=== PATIENT | male | born 1955 | race Caucasian/White ===

== ENCOUNTER → 2016-08-09 | Outpatient (CLI) | payer OTHER ==
[~2016-08-09] MED LIST: REGADENOSON 0.4 MG/5 ML SYRINGE IV ONE
--- NOTE | 2016-08-09 13:30 | NM ---
EXAMINATION TYPE: NM stress lexiscan cardiolite DATE OF EXAM: 08/09/2016 1:19 PM COMPARISON: NONE HISTORY: Hypertension and pain TECHNIQUE: After the intravenous administration of 9.5 mCi Tc 99m Sestamibi - Cardiolite resting SPE CT images acquired 45 minutes post injection. The patient received 0.4mg Lexiscan, 24.0 mCi Tc 99m Sestamibi - Stress images obtained [address] injection FINDINGS: Review of stress and rest SPECT images demonstrates fixed defect involving the inferior wall the myoc ardium. Small fixed defect involving the apex myocardium with corresponding wall motion defect.. Gat ed analysis shows normal wall motion with an estimated left ventricular ejection fraction of 52 %. IMPRESSION: Predominantly fixed defect involving the inferior and apical portions of the myocardium w ith a small area of segmental reversible perfusion defect and reversible ischemia involving the infer ior neural lateral myocardium. A Yellow message has been communicated to Bakari Evans DO via the [employer] system on 08/09/2016 1:27 PM, Message ID [id number].
--- NOTE | 2016-08-10 11:09 | ECHOF ---
Referral Reason: MEASUREMENTS -------- HEIGHT: 165.1 cm WEIGHT: 117.9 kg BP: IVSd: 1.3 cm (0.6 - 1.1) LVIDd: 5.2 cm (3.9 - 5.3) LVPWd: 1.2 cm (0.6 - 1.1) IVSs: 1.3 cm LVIDs: 4.3 cm LVPWs: 1.4 cm LA Diam: 3.8 cm (2.7 - 3.8) LAESV Index (A-L): 19.80 ml/m Ao Diam: 4.0 cm (2.0 - 3.7) AV Cusp: 1.7 cm (1.5 - 2.6) LA Diam: 3.8 cm (2.7 - 3.8) MV EXCURSION: 19.783 mm (> 18.000) MV EF SLOPE: 62 mm/s (70 - 150) EPSS: 0.6 cm MV E Ernesto: 0.76 m/s MV DecT: 291 ms MV A Ernesto: 1.06 m/s MV E/A Ratio: 0.72 RAP: 5.00 mmHg RVSP: 19.65 mmHg FINDINGS -------- Sinus rhythm. This was a technically adequate study. There is mild concentric left ventricular hypertrophy. Overall left ventricular systolic function is low-normal with, an EF between 50 - 55 %. The right ventricle is normal in size. Normal LA size by volume 22+/-6 ml/m2. The right atrial size is normal. There is mild aortic valve sclerosis. There is no evidence of aortic regurgitation. Mild mitral annular calcification present. Mild mitral regurgitation is present. Mild tricuspid regurgitation present. There is no evidence of pulmonary hypertension. The right ventricular systolic pressure, as measured by Doppler, is 19.65mmHg. There is no pulmonic regurgitation present. The aortic root size is normal. There is no pericardial effusion. CONCLUSIONS -------- 1. Overall left ventricular systolic function is low-normal with, an EF between 50 - 55 %. 2. There is mild aortic valve sclerosis. 3. Mild mitral annular calcification present. 4. Mild mitral regurgitation is present. 5. Mild tricuspid regurgitation present. 6. There is no evidence of pulmonary hypertension. 7. The right ventricular systolic pressure, as measured by Doppler, is 19.65mmHg. CREW FOREMAN: Audrey Seo RDCS
--- NOTE | 2016-08-10 11:48 | EST ---
DATE OF SERVICE: 08/09/2016 AGE: 61Y SEX: M HT: 5'5" WT: lbs. Protocol Anjum: Other: Lexiscan Cardiolite Stage: Dur. of Exercise: *Heart Rate Blood Pressure *Rest: 78 Rest: 143/89 * *Max. Achieved: 94 Maximum BP: 153/79 85% PMHR: 134 100% PMHR: 158 *METS: INDICATIONS: Increase blood pressure. MEDICATIONS: Norvasc, losartan, atenolol, Zyrtec. Patient was given Lexiscan injection over a period of 15 seconds. Resting EKG shows normal sinus rhythm with normal [place] interval and QRS duration and normal ST-T waves. No ST segment depression suggestive of ischemia is noted during the Lexiscan injection. Results of the nuclear study will follow.
== END | disposition home or self-care (01) ==
LOC: RADNMMAIN 08:53
PROVIDERS: ATTEND Family Medicine
DX: G47.33 Obstructive sleep apnea (adult) (pediatric) (principal); R60.9 Edema, unspecified; I10 Essential (primary) hypertension
CPT/HCPCS: 93017; 93306; 78452; A9500; J2785

== ENCOUNTER → 2016-08-28 | Outpatient (CLI) | payer OTHER ==
[2016-08-28 08:55] LABS: CH 30.7; HCT 45.7 % (39.0-53.0); HDW 2.32; HGB 14.9 gm/dL (13.0-17.5); MCH 30.4 pg (25.0-35.0); MCHC 32.5 g/dL (31.0-37.0); MCV 93.4 fL (80.0-100.0); Mean Platelet Volume 6.7; RDW 14.2 % (11.5-15.5)
[2016-08-28 09:12] LABS: Anion Gap 8 mmol/L; Blood Urea Nitrogen 25 mg/dL (9-20); Carbon Dioxide 27 mmol/L (22-30); Chloride 106 mmol/L (98-107); Non-African American GFR(MDRD) >60 (>60 ml/min/1.73 sqM); Potassium 4.3 mmol/L (3.5-5.1); Sodium 141 mmol/L (137-145)
== END | disposition home or self-care (01) ==
LOC: LABPAT 08:15
PROVIDERS: ATTEND Internal Medicine Interventional Cardiology
DX: Z01.812 Encounter for preprocedural laboratory examination (principal); I25.10 Atherosclerotic heart disease of native coronary artery without angina pectoris
CPT/HCPCS: 80051; 82565; 84520; 85027

== ENCOUNTER 2016-09-01 07:48 | Day surgery (SDC) | payer OTHER ==
[2016-08-30 11:19] VITALS: BMI 44.1
[~2016-09-01 07:48] MED LIST changes: +ALPRAZolam 0.25 MG TAB PO PRN; +ALPRAZolam 0.5 MG TAB PO PRN; +ASPIRIN 325 MG TAB PO STA; +ATORVASTATIN 80 MG TAB PO STA; +NITROGLYCERIN SL TABS 0.4 MG TAB SUBLINGUAL PRN; -REGADENOSON 0.4 MG/5 ML SYRINGE IV ONE; +SODIUM CHLORIDE 0.9% 1,000 ML in EMPTY BAG 1 BAG IV ONE
[2016-09-01 08:12] VITALS: RESP 16; TEMP 98.1
[2016-09-01] MEDS ORDERED: LIDOCAINE 2% INJ 20 MG/ML (20 ML MDV) ONE (08:54)
[2016-09-01] MEDS ORDERED: VERAPAMIL 2.5 MG/ML 2 ML AMP ONE (08:54)
[2016-09-01] MEDS ORDERED: HEPARIN SODIUM 1,000 UNIT/ML VIAL ONE (08:54)
[2016-09-01] MEDS ORDERED: MIDAZOLAM 2 MG/2 ML VIAL ONE ×2 (08:54→10:06)
[2016-09-01] MEDS ORDERED: MIDAZOLAM 2 MG/2 ML VIAL IV ONE ×2 (09:35→10:09)
[2016-09-01] MEDS ORDERED: LIDOCAINE 2% INJ 20 MG/ML SQ ONE (09:40)
[2016-09-01] MEDS ORDERED: VERAPAMIL SYRINGE (5 MG/10 ML) INTRAARTER ONE ×2 (09:41→10:11)
[2016-09-01] MEDS ORDERED: fentaNYL (PF) 50 MCG/ML 2 ML AMP ONE (09:42)
[2016-09-01] MEDS ORDERED: IOHEXOL 350 MG/ML 125ML BOTTLE INJ ONE (10:12)
[2016-09-01] MEDS ORDERED: RX INFO: IV CONTRAST WAS GIVEN 1 EACH MISC MISCELLANE PRN (10:17)
[2016-09-01] MEDS ORDERED: SODIUM CHLORIDE 0.9% 1,000 ML IV SCH (10:30)
--- NOTE | 2016-09-01 11:07 | CC ---
DATE OF SERVICE: 09/01/2016 PERFORMING PHYSICIAN: Jigar Rogers MD, Load Mixer. PROCEDURE PERFORMED: Selective right and left coronary angiogram. 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 The decision was made toward heart catheterization to rule out any severe underlying CAD. APPROACH: Right radial artery. COMPLICATIONS: None. LEVEL OF SEDATION: Moderate with a sedation length of 38 minutes. PROCEDURE DESCRIPTION: After obtaining an informed consent, the patient was brought to the Cardiac Chief Juvenile Probation Officer. The right radial artery was cannulated using micropuncture technique. The micropuncture wire passed easily, then I placed 6 Lao sheath in the right radial artery. Subsequently, I did selective right and left coronary angiogram using JR4 and JL3.5 catheters. The procedure was completed without any complication. SELECTIVE CORONARY ANGIOGRAM: 1. The right coronary artery is a large-caliber vessel and it is a dominant vessel, it is angiographically normal. If bifurcates distally into the PDA and PLV branches; both are angiographically normal. 2. The left main is a large-caliber vessel. The ostial left main appeared to be diseased in the range of 20% only. It bifurcates into the left circumflex and left anterior descending artery. 3. The left circumflex is a large-caliber vessel. It is a nondominant vessel. The left circumflex is angiographically normal. It gives rise into 2 obtuse marginal branches and both are angiographically normal. 4. The left anterior descending artery. The proximal LAD appeared to be angiographically normal. The mid LAD is normal and the distal LAD is normal as well. The LAD gives rise into the 3 diag branches; the three of them are angiographically normal. 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 POSTPROCEDURE MANAGEMENT: 1. Medical treatment. 2. Follow up with the patient.
[2016-09-01 13:28] VITALS: PULSE 51
[2016-09-01 14:52] VITALS: BP 121/62
== END 2016-09-01 15:12 | disposition home or self-care (01) ==
LOC: CATHCVL 07:48
PROVIDERS: ATTEND Internal Medicine Interventional Cardiology
DX: I25.110 Atherosclerotic heart disease of native coronary artery with unstable angina pectoris (principal); I10 Essential (primary) hypertension; Z82.49 Family history of ischemic heart disease and other diseases of the circulatory system; Z79.1 Long term (current) use of non-steroidal anti-inflammatories (NSAID); Z79.899 Other long term (current) drug therapy
CPT/HCPCS: 99152; 99153 ×2; 93454; C1769 ×2; J2001; J2250; J1644; Q9967

== ENCOUNTER → 2020-03-05 | Outpatient (CLI) | payer MEDICARE ==
--- NOTE | 2020-03-05 14:42 | XR ---
Bilateral knees HISTORY: Bilateral knee pain 3 views of each knee are submitted. There is comparison to prior exam 03/10/2011 right knee plain film There is marked arthropathy present bilaterally, tricompartmental marginal spurring, joint space loss especially in the patellofemoral joints, medial compartments, bone mineralization is maintained. Mil d varus deformity present bilaterally. IMPRESSION: Osteoarthritis.
== END | disposition home or self-care (01) ==
LOC: RADXRYALE 11:01
PROVIDERS: ATTEND Family Medicine
DX: M17.0 Bilateral primary osteoarthritis of knee (principal); M25.562 Pain in left knee

== ENCOUNTER → 2020-09-24 | Outpatient (CLI) | payer MEDICARE ==
[2020-09-24 10:11] LABS: HCT 46.7 % (39.0-53.0); HGB 15.4 gm/dL (13.0-17.5); MCH 30.2 pg (25.0-35.0); MCHC 32.9 g/dL (31.0-37.0); MCV 91.9 fL (80.0-100.0); Mean Platelet Volume 6.9; Platelet Count 352 k/uL (150-450); RBC 5.09 m/uL (4.30-5.90); RDW 14.5 % (11.5-15.5); WBC 9.6 k/uL (3.8-10.6)
[2020-09-24 10:13] LABS: Appearance,Urine Clear (Clear); Bilirubin,Urine Negative (Negative); Blood,Urine Trace (Negative); Color,Urine Yellow; Glucose,Urine (UA) Negative (Negative); Ketones,Urine Negative (Negative); Leukocyte Esterase,Urine Trace (Negative); Mucus,Urine Rare /hpf; Nitrite,Urine Negative (Negative); Protein,Urine Negative (Negative); RBC,Urine 2 /hpf (0-5); Specific Gravity,Urine 1.018 (1.001-1.035); Urobilinogen,Urine <2.0 mg/dL (<2.0); WBC,Urine 1 /hpf (0-5)
[2020-09-24 10:16] LABS: ALT 40 U/L (4-49); AST 36 U/L (17-59); African American GFR (CKD) >90 (>60 ml/min/1.73 sqM); Albumin 4.4 g/dL (3.5-5.0); Alkaline Phosphatase 48 U/L (38-126); Anion Gap 8 mmol/L; Blood Urea Nitrogen 22 mg/dL (9-20); Calcium 9.4 mg/dL (8.4-10.2); Carbon Dioxide 28 mmol/L (22-30); Chloride 102 mmol/L (98-107); Glucose 108 mg/dL (74-99); Non-African American GFR(CKD) 88 (>60 ml/min/1.73 sqM); Potassium 3.9 mmol/L (3.5-5.1); Sodium 138 mmol/L (137-145); Total Bilirubin 0.9 mg/dL (0.2-1.3)
[2020-09-24 10:29] LABS: Partial Thromboplastin Time 24.4 sec (22.0-30.0); Prothrombin Time 10.7 sec (9.0-12.0)
== END | disposition home or self-care (01) ==
LOC: LABPAT 09:24
PROVIDERS: ATTEND Orthopaedic Surgery
DX: Z01.818 Encounter for other preprocedural examination (principal); M16.12 Unilateral primary osteoarthritis, left hip; R94.31 Abnormal electrocardiogram [ECG] [EKG]
CPT/HCPCS: 36415; 80053; 81001; 85027; 85610; 85730; 87070; 93005

== ENCOUNTER 2020-10-05 05:43 | Day surgery (SDC) | payer MEDICARE ==
[2020-09-30 16:13] VITALS: BMI 45.3
[~2020-10-05 05:43] MED LIST changes: +ACETAMINOPHEN TAB 500 MG TAB PO PRN; -ALPRAZolam 0.25 MG TAB PO PRN; -ALPRAZolam 0.5 MG TAB PO PRN; -ASPIRIN 325 MG TAB PO STA; -ATORVASTATIN 80 MG TAB PO STA; +DEXAMETHASONE SOD PHOSPHATE 4 MG/ML 1 ML VIAL IV ONE; +GABAPENTIN 300 MG CAP PO PRN; +LACTATED RINGERS 1,000 ML IV SCH; +LIDOCAINE 1% (10MG/ML) FOR IV START INTRADERMA PRN; +MELOXICAM 7.5 MG TAB PO PRN; +MIDAZOLAM 2 MG/2 ML VIAL IV PRN; -NITROGLYCERIN SL TABS 0.4 MG TAB SUBLINGUAL PRN; +ONDANSETRON 4 MG/2 ML VIAL IVP ONE; -SODIUM CHLORIDE 0.9% 1,000 ML in EMPTY BAG 1 BAG IV ONE; +TRANEXAMIC ACID 1,000 MG in SODIUM CHLORIDE 0.9% 100 ML IVPB PRN; +ceFAZolin 3 GM in SODIUM CHLORIDE 0.9% 100 ML IVPB PRN
[2020-10-05 06:39] VITALS: RESP 16
[2020-10-05] MEDS ORDERED: PROPOFOL 10 MG/ML 20 ML VIAL IV ONE (06:54)
[2020-10-05] MEDS ORDERED: HYDROmorphone (PF) 1 MG/ML ONE (06:54)
[2020-10-05] MEDS ORDERED: HEPARIN SODIUM,PORCINE 10,000 UNIT/ML 1 ML VIAL ONE (06:54)
[2020-10-05] MEDS ORDERED: LIDOCAINE 1% INJ 10MG/ML (20 ML MDV) ONE (06:54)
[2020-10-05] MEDS ORDERED: SODIUM CHLORIDE 0.9% 100 ML BAG ONE (06:54)
[2020-10-05] MEDS ORDERED: SODIUM CHLORIDE 0.9% IRRIG 1,000 ML BTL IRRIGATION ONE (06:54)
[2020-10-05] MEDS ORDERED: SUCCINYLCHOLINE CHLORIDE VIAL 200 MG/10 ML VIAL IV ONE (06:54)
[2020-10-05] MEDS ORDERED: TRANEXAMIC ACID 1,000 MG/10 ML VIAL ONE (06:54)
[2020-10-05] MEDS ORDERED: fentaNYL (PF) 50 MCG/ML 2 ML AMP ONE (06:54)
[2020-10-05] MEDS ORDERED: MIDAZOLAM 2 MG/2 ML VIAL ONE (06:54)
[2020-10-05] MEDS ORDERED: ePHEDrine SULFATE/0.9% NACL/PF 50 MG/5 ML SYRINGE IV ONE (06:54)
[2020-10-05] MEDS ORDERED: ceFAZolin 3,000 MG in SODIUM CHLORIDE 0.9% IRRIGATIO 3,000 ML IRRIGATION ONE (06:59)
[2020-10-05] MEDS ORDERED: NALOXONE 0.4 MG/ML 1 ML VIAL IV PRN (07:03)
[2020-10-05] MEDS ORDERED: HYDROmorphone 0.2 MG/1 ML SYRINGE IVP PRN (07:03)
[2020-10-05] MEDS ORDERED: HYDROmorphone 0.5 MG/0.5 ML SYRINGE IVP PRN ×2 (07:03)
[2020-10-05] MEDS ORDERED: ONDANSETRON 4 MG/2 ML VIAL IVP PRN (07:03)
[2020-10-05] MEDS ORDERED: HYDROcodone/APAP 7.5-325MG 1 EACH TAB PO PRN ×2 (07:05)
[2020-10-05] MEDS ORDERED: SODIUM CHLORIDE 0.9% 1,000 ML IV SCH (07:15)
[2020-10-05] MEDS: ROPIVACAINE/EPI/CLONIDINE/KET 50 ML SYRINGE MISCELLANE PRN ×2 (07:18→08:15)
--- NOTE | 2020-10-05 08:38 | P.OP ---
Date of Procedure: 10/05/20 Preoperative Diagnosis: Severe osteoarthritis left hip Postoperative Diagnosis: Severe osteoarthritis left hip Procedure(s) Performed: Left total hip arthroplasty direct anterior approach Implants: [employer] Polarstem standard size 2 [employer] R3, 3 hole hemispherical acetabular shell, 52 mm [employer] Reflection 6.5 mm cancellus screw, 20 mm 2 [employer] R3, XLPE 20 acetabular liner [employer] Oxinium femoral head 36 m, +4 All components were press-fit. The articulation is Oxinium on polyethylene. Anesthesia: GETA Surgeon: Bakari Carbajal Project Management Specialist #1: Soo Patterson Estimated Blood Loss (ml): 450 (199 mL returned with Cell Saver) Pathology: other (Femoral head) Condition: stable Disposition: PACU Indications for Procedure: After failure of conservative treatment we discussed the surgical and nonsurgical treatment options at length. Patient wishes to proceed with a total hip arthroplasty with a direct anterior approach. Complications specific to this procedure were discussed at length, including but not limited to infection, leg length discrepancy, dislocation, nerve injury, and fracture. Covid-19 was also discussed at length with the patient, and they are aware of the current policies and procedures. The patient was given the option of delaying surgery, but they elect to proceed knowing these risks. Patient is aware of all these complications and informed consent was obtained Operative Findings: The operative findings are consistent with severe osteoarthritis of the left hip Description of Procedure: Patient was seen and evaluated in the preoperative area and the consent was reviewed. The operative site was marked with a skin marker. The patient was then brought to the operating room and given preoperative antibiotics intravenously. 1 g of Tranexamic acid was also given intravenously. A general anesthetic was administered by the anesthesia department. The patient was then placed on the Keavy table with the bony prominences well-padded. The hip area was then prepped with a ChloraPrep solution and draped in the usual sterile fashion. A universal timeout was then performed, which confirmed the patient's name, surgical site, ALLERGIES, and procedure being performed on the consent. Next the incision site was located at 1 cm distal to the anterior superior iliac spine along the flexion crease of the hip. The skin and subcutaneous tissues were sharply incised. Incision was carefully dissected down to the fascia overlying the tensor fascia megan muscle. This fascia was then incised in line with the incision. Care was taken to stay laterally in order to avoid injuring the lateral femoral cutaneous nerve. Next, using blunt finger dissection, the tensor fascia megan muscle was dissected off its investing fascia. The muscle was then carefully retracted laterally with a cobra retractor over the lateral neck of the femur. Next, the circumflex vessels were identified and cauterized using the AquaMantis device. The anterior hip capsule was then exposed. The capsule was then opened and an inverted T fashion. Cobra retractors were then placed intracapsularly. The retractors were maintained intracapsular throughout the procedure. The proximal femur was then visualized. A small amount of traction was placed on the leg. The femoral neck was then osteotomized appropriate level above the lesser trochanter. A small wedge of bone was then removed from the remaining femoral head. Next, using a corkscrew the femoral head was removed from the acetabulum. On gross visual inspection, the femoral head had complete loss of articular cartilage and multiple periarticular osteophytes. The femoral head was then measured. Attention was then turned to the acetabulum. The acetabulum was exposed and any remaining labrum was excised. Sequential reaming of the acetabulum was performed using fluoroscopic guidance until there was a good bed of bleeding cancellus bone. When the appropriate size was reached, a trial was then placed. The position and fit of the trial was checked with fluoroscopy. The trial was then removed. Then, using fluoroscopic guidance, the final implant was impacted at 20 of anteversion and 40 of abduction, and fully seated in the acetabulum. 2 screws were then placed in the acetabulum. Again fluoroscopy was used to check position of the screws. Next, the liner was then impacted, with a 20 elevated liner located in the anterior superior quadrant. Component locking was confirmed. Attention was then directed to the femur. With the aid of the Keavy table, the femur was externally rotated to approximately 130, extended, and adducted under the opposite leg. A side hook was then placed under the proximal femur, and the side hook elevator was used to elevate the proximal femur while releasing the capsule. Retractors were then placed. A capsular release was performed, as well as a release of the conjoined tendon, which afforded excellent visualization of the proximal femur. Next, a box osteotome was used to lateralize the proximal femur. A cigar tobacco rehandler was then used to locate the femoral canal. Sequential broaching was then performed with appropriate size which afforded excellent fixation in the proximal femur. A trial was then placed with appropriate head and neck, and the hip was gently reduced with the aid of the Keavy table. Fluoroscopy was then used to check position of the components, as well as to ensure equal leg lengths. The hip was then gently dislocated and the trials were then removed. Final implants were then impacted and the hip was again reduced. Final fluoroscopic x-rays confirmed that the components were in anatomic position, as well as equal leg lengths. The hip was also taken through range of motion, and found to be stable. The hip was then copiously irrigated with antibiotic solution with pulsatile lavage. The hip was then irrigated with Irrisept solution. The soft tissues we re then injected with a ropivacaine solution, which consisted of 246.25 mg of ropivacaine, 0.5 mg of epinephrine, 30 mg of Toradol, 80 g of clonidine, and 48.45 mL of sterile water, for a total of 100 mL of fluid injected. A second dose of 1 g of Tranexamic acid was also given intravenously. Any blood collected by Cell Saver was then returned to the patient at this time. The fascia was then closed with 2-0 strata fix suture. The subcutaneous tissue was closed with 3-0 Vicryl. The subcuticular tissue was closed with 3-0 strata fix suture. The skin was then closed with Exofin skin glue. After the glue and dried, and Optifoam silver impregnated dressing was applied. The patient was then transferred to the recovery room in stable condition. The radiology assistant MAYRA Foote was required due to the complexity of surgery, and the need for skilled surgical scrub tech for positioning, draping, exposure, retraction, and closure of the wound.
[2020-10-05 08:55] VITALS: TEMP 96.8
[2020-10-05] MEDS: HYDROmorphone 0.5 MG/0.5 ML SYRINGE IVP PRN ×3 (09:05→09:34)
[2020-10-05] MEDS ORDERED: LACTATED RINGERS 1,000 ML IV ONE (09:17)
--- NOTE | 2020-10-05 09:31 | XR ---
EXAMINATION TYPE: XR Hip Limited LT DATE OF EXAM: 10/05/2020 COMPARISON: NONE HISTORY: Postop TECHNIQUE: One view submitted. FINDINGS: There is postsurgical change in near anatomic alignment. There is soft tissue edema and emphysema. IMPRESSION: 1. Postoperative change. Appears in near-anatomic alignment.
--- NOTE | 2020-10-05 09:34 | FL ---
EXAMINATION TYPE: FL guidance operating room DATE OF EXAM: 10/05/2020 HISTORY: Fluoroscopy time 24 seconds of fluoroscopy provided. IMPRESSION: 1. Fluoroscopy time.
[2020-10-05 12:04] VITALS: PULSE 68
[2020-10-05 12:29] VITALS: BP 121/62
[2020-10-05] MEDS ORDERED: ceFAZolin 3 GM in SODIUM CHLORIDE 0.9% 100 ML IVPB SCH (16:00)
== END 2020-10-05 14:09 | disposition home health service (06) ==
LOC: OR 05:43
PROVIDERS: ATTEND Orthopaedic Surgery
DX: M16.12 Unilateral primary osteoarthritis, left hip (principal); E78.2 Mixed hyperlipidemia; I10 Essential (primary) hypertension; F41.9 Anxiety disorder, unspecified; E55.9 Vitamin D deficiency, unspecified; J32.4 Chronic pansinusitis; E66.01 Morbid (severe) obesity due to excess calories; Z79.899 Other long term (current) drug therapy
CPT/HCPCS: 97110; 97161; 86891; 86900; 86901; 86850; 88300; 73501; 27130; C1776; J2250; J0330; J1644; J1100; J0690 ×2; J2405; J2001; J3010; J1170 ×2; J2704

== ENCOUNTER → 2021-11-21 | Outpatient (CLI) | payer MEDICARE ==
--- NOTE | 2021-11-21 10:45 | XR ---
EXAMINATION TYPE: XR chest 2V DATE OF EXAM: 11/21/2021 COMPARISON: NONE HISTORY: [id number] TECHNIQUE: Frontal and lateral views of the chest are obtained. FINDINGS: Patient is rotated. There is no focal air space opacity, pleural effusion, or pneumothorax seen. The cardiac silhouette size is within normal limits. The osseous structures are intact, arth ropathy present at the chromic clavicular joints. Questionable prominence of the pulmonary artery. Th ere is thoracic spondylosis. IMPRESSION: No acute cardiopulmonary process. Question prominence of pulmonary artery, possibly tech nical, can be seen in pulmonary artery hypertension.
[2021-11-21 14:34] LABS: Appearance,Urine Clear (Clear); Bilirubin,Urine Negative (Negative); Blood,Urine Negative (Negative); Color,Urine Yellow (Yellow); Ketones,Urine Negative (Negative); Nitrite,Urine Negative (Negative); PH, Urine 5.5 (5.0-8.0); Specific Gravity,Urine 1.019 (1.001-1.030); Urobilinogen,Urine 0.2 (0.2,1.0)
[2021-11-21 15:38] LABS: Basophils # (A) 0.07 X 10*3/uL (0.00-0.10); Basophils % (A) 0.7 %; Eosinophils # (A) 0.54 X 10*3/uL (0.04-0.35); Eosinophils % (A) 5.7 %; HCT 43.9 % (39.6-50.0); HGB 14.4 g/dL (13.0-17.0); Immature Grans, Automated 0.5 %; Lymphocytes # (A) 1.63 X 10*3/uL (0.90-5.00); Lymphocytes % (A) 17.3 %; MCH 31.1 pg (27.0-32.0); MCHC 32.8 g/dL (32.0-37.0); MCV 94.8 fL (80.0-97.0); Mean Platelet Volume 9.2 fL (9.5-12.2); Monocytes % (A) 6.4 %; NRBC Per 100 WBC 0 /100 WBCS (0.0-0.0); Neutrophils # (A) 6.52 X 10*3/uL (1.80-7.70); Neutrophils % (A) 69.4 %; Platelet Count 353 X 10*3/uL (140-440); RBC 4.63 X 10*6/uL (4.40-5.60); RDW 14.1 % (11.5-14.5); WBC 9.41 X 10*3/uL (4.50-10.00)
[2021-11-21 15:48] LABS: African American GFR (CKD) 107.1 (60.0-200.0); Anion Gap 9.9 mmol/L (10.00-18.00); BUN/Creat Ratio 49.63 Ratio (12.00-20.00); Blood Urea Nitrogen 39.7 mg/dL (9.0-27.0); Calcium 9.5 mg/dL (8.7-10.3); Carbon Dioxide 23.1 mmol/L (20.0-27.5); Non-African American GFR(CKD) 92.4 (60.0-200.0)
== END | disposition home or self-care (01) ==
LOC: LABPAT 09:12
PROVIDERS: ATTEND Urology
DX: Z01.812 Encounter for preprocedural laboratory examination (principal); C61 Malignant neoplasm of prostate
CPT/HCPCS: 36415; 71046; 80048; 81003; 85025; 87086

== ENCOUNTER 2021-12-01 05:41 | Day surgery (SDC) | payer MEDICARE ==
[2021-11-29 09:49] VITALS: BMI 33.9
--- NOTE | 2021-11-29 13:49 | P.HPIHPCON ---
History of Present Illness H&P Date: 11/29/21 Mr. Doss is a 66-year-old male with history of gleson 7 (3+4) prostate cancer. We discussed with him the options including surgery and radiation therapy. We discussed the risk and benefits with him of each approach. I discussed with surgery the risk of urinary incontinence or erectile dysfunction, stricture, cancer recurrence.I also discussed with him risk of injury to nearby organs including bowels and rectum and blood vessels. I also discussed the risk from anesthesia with him. Which included blood clots, heart attack, stroke and even . He understood all the risk and agreed to proceed with a robotic- assisted radical prostatectomy and pelvic lymph node dissection Consent for Procedure: I have explained the operation/procedure to the patient, including the risks, benefits, side effects, alternative therapies (including not receiving the proposed treatment or service), the likelihood of the patient achieving his/her goals, and potential recuperation problems for the procedure/sedation/analgesia, as well as any blood products, if indicated. I also explained to the patient the risks, benefits and side effects of the alternatives, as well as the risks related to not receiving the proposed procedure, care, treatment, or services. Past Medical History Past Medical History: Cancer, Hypertension, Osteoarthritis (OA) Additional Past Medical History / Comment(s): PROSTATE CANCER. SEASONAL ALLERGIES History of Any Multi-Drug Resistant Organisms: None Reported Past Surgical History: Hernia Repair, Joint Replacement Additional Past Surgical History / Comment(s): LT MARLENE-2020. RT ANKLE REPLACEMENT. COLONOSCOPY Past Anesthesia/Blood Transfusion Reactions: No Reported Reaction Smoking Status: Never smoker - Past Family History Mother Family Medical History: No Reported History Medications and Allergies Home Medications Medication Instructions Recorded Confirmed Type Cetirizine HCl [Zyrtec] 10 mg PO HS 08/30/16 11/29/21 History Cholecalciferol [Vitamin D3 (25 5,000 unit PO MOWEFRSA 08/30/16 11/29/21 History Mcg = 1000 Iu)] Ibuprofen [Motrin] 800 mg PO BID PRN 08/30/16 11/29/21 History Losartan [Cozaar] 100 mg PO HS 08/30/16 11/29/21 History atenoloL 25 mg PO HS 08/30/16 11/29/21 History hydroCHLOROthiazide 50 mg PO DAILY 08/30/16 11/29/21 History Acetaminophen [Tylenol Extra 1,000 mg PO BID PRN 11/29/21 11/29/21 History Strength] Docusate [Colace] 300 mg PO HS 11/29/21 11/29/21 History Allergies Allergy/AdvReac Type Severity Reaction Status Date / Time cueva Allergy CAUSES Verified 11/29/21 10:00 MOUTH TO SWELL orange Allergy CAUSES Verified 11/29/21 10:00 MOUTH TO SWELL peach Allergy CAUSES Verified 11/29/21 10:00 MOUTH TO SWELL plum Allergy CAUSES Verified 11/29/21 10:00 MOUTH TO SWELL watermelon Allergy CAUSES Verified 11/29/21 10:00 MOUTH TO SWELL Surgical - Exam - General no distress, no pain - Eyes normal ocular movement - Respiratory normal expansion, normal respiratory effort - Abdomen Abdomen: soft, non tender - Psychiatric oriented to time, oriented to person, oriented to place Assessment and Plan Assessment: -OR for robotic prostatecomy and PLND
[~2021-12-01 05:41] MED LIST changes: -ACETAMINOPHEN TAB 500 MG TAB PO PRN; -DEXAMETHASONE SOD PHOSPHATE 4 MG/ML 1 ML VIAL IV ONE; -GABAPENTIN 300 MG CAP PO PRN; +HEPARIN SODIUM,PORCINE/PF 5,000 UNIT/0.5 ML SYRINGE SQ PRN; -LACTATED RINGERS 1,000 ML IV SCH; -LIDOCAINE 1% (10MG/ML) FOR IV START INTRADERMA PRN; -MELOXICAM 7.5 MG TAB PO PRN; -MIDAZOLAM 2 MG/2 ML VIAL IV PRN; -ONDANSETRON 4 MG/2 ML VIAL IVP ONE; -TRANEXAMIC ACID 1,000 MG in SODIUM CHLORIDE 0.9% 100 ML IVPB PRN; -ceFAZolin 3 GM in SODIUM CHLORIDE 0.9% 100 ML IVPB PRN
[2021-12-01] MEDS ORDERED: ONDANSETRON 4 MG/2 ML VIAL IVP ONE (06:04)
[2021-12-01] MEDS ORDERED: DEXAMETHASONE SOD PHOSPHATE 4 MG/ML 1 ML VIAL IV ONE (06:04)
[2021-12-01] MEDS: LACTATED RINGERS 1,000 ML IV SCH (06:30)
[2021-12-01] MEDS ORDERED: MIDAZOLAM 2 MG/2 ML VIAL IV ONE (06:59)
[2021-12-01] MEDS ORDERED: HEPARIN SODIUM,PORCINE/PF 5,000 UNIT/0.5 ML SYRINGE SQ ONE (07:15)
[2021-12-01] MEDS ORDERED: PROPOFOL 10 MG/ML 50 ML VIAL IV ONE (07:30)
[2021-12-01] MEDS ORDERED: MIDAZOLAM 2 MG/2 ML VIAL ONE (07:30)
[2021-12-01] MEDS ORDERED: NEOSTIGMINE 1 MG/ML 10 ML VIAL ONE (07:30)
[2021-12-01] MEDS ORDERED: ROPIVACAINE 5 MG/ML 30 ML VIAL ONE (07:30)
[2021-12-01] MEDS ORDERED: SODIUM CHLORIDE 0.9% (PF) 10 ML VIAL ONE (07:30)
[2021-12-01] MEDS ORDERED: SUCCINYLCHOLINE CHLORIDE 200 MG/10 ML VIAL IV ONE (07:30)
[2021-12-01] MEDS ORDERED: LIDOCAINE 2% INJ 20 MG/ML (2 ML VIAL) ONE (07:30)
[2021-12-01] MEDS ORDERED: DEXAMETHASONE SOD PHOSPHATE 4 MG/ML 1 ML VIAL ONE (07:30)
[2021-12-01] MEDS ORDERED: SODIUM CHLORIDE 0.9% 100 ML BAG ONE (07:30)
[2021-12-01] MEDS ORDERED: ROCURONIUM 10 MG/ML (5 ML VIAL) IV ONE (07:30)
[2021-12-01] MEDS ORDERED: GLYCOPYRROLATE 0.2 MG/ML 2 ML VIAL ONE (07:30)
[2021-12-01] MEDS ORDERED: ceFAZolin 1,000 MG VIAL ONE (07:30)
[2021-12-01] MEDS ORDERED: ePHEDrine 50 MG/ML 1 ML VIAL ONE (07:30)
[2021-12-01] MEDS ORDERED: HYDROmorphone (PF) 1 MG/ML ONE (07:30)
[2021-12-01] MEDS ORDERED: fentaNYL (PF) 50 MCG/ML 2 ML AMP ONE (07:30)
[2021-12-01] MEDS ORDERED: BUPIVACAINE (PF) 0.25% 30 ML VIAL SQ ONE (07:36)
[2021-12-01] MEDS ORDERED: HYDROcodone/APAP 5-325MG 1 EACH TAB PO PRN (07:43)
--- NOTE | 2021-12-01 08:56 | P.ANPRN ---
Procedure Note - Anesthesia - Nerve Block Performed Bilateral Erector Spinae Single Time Out Performed: Yes ([id number]) Date of Procedure: 12/01/21 Procedure Start Time: :58 Procedure Stop Time: 07:09 Location of Patient: PreOp Indication: Acute Post-Operative Pain, Dx/Pain Location (abdominal pain), Requested by Surgeon Specifically requested for management of pain by DrRobson: Mark Marte Sedation Type: Sedate with meaningful contact maintained Preparation: Sterile Prep Position: Prone Catheter: None Needle Gauge: 21 (100 mm) Ultrasound used to visualize needle placement: Yes Ultrasound used to observe medication spread: Yes Injectate: 0.5% Ropivacaine (see comment for volume) (40cc and 20 cc of normal saline with 4mg of decadron) Blood Aspirated: No Pain Paresthesia on Injection Noted: No Resistance on Injection: Normal Image Stored and Saved: Yes Events: Uneventful and Well Tolerated
[2021-12-01] MEDS ORDERED: LACTATED RINGERS 1,000 ML IV ONE (11:21)
[2021-12-01] MEDS ORDERED: KETOROLAC 15 MG/ML 1 ML VIAL IVP ONE (12:26)
[2021-12-01] MEDS: HYDROmorphone 0.5 MG/0.5 ML SYRINGE IVP PRN ×2 (12:30→14:15)
--- NOTE | 2021-12-01 13:44 | P.OP ---
Date of Procedure: 12/01/21 Preoperative Diagnosis: Prostate cancer Postoperative Diagnosis: Same Procedure(s) Performed: Robotic-assisted laparoscopic prostatectomy, pelvic lymph node dissection Implants: None Anesthesia: ALEXA Surgeon: Mark Marte Estimated Blood Loss (ml): 200 Pathology: other (Prostate, bilateral seminal vesicle, bilateral pelvic lymph nodes, and left apical margin) Condition: stable Disposition: PACU Indications for Procedure: Mr. Doss is a 66-year-old male with history of gleson 7 (3+4) prostate cancer. We discussed with him the options including surgery and radiation therapy. We discussed the risk and benefits with him of each approach. I discussed with surgery the risk of urinary incontinence or erectile dysfunction, stricture, cancer recurrence.I also discussed with him risk of injury to nearby organs including bowels and rectum and blood vessels. I also discussed the risk from anesthesia with him. Which included blood clots, heart attack, stroke and even . He understood all the risk and agreed to proceed with a robotic- assisted radical prostatectomy and pelvic lymph node dissection Description of Procedure: After preoperative antibiotics were started, the patient was taken to the ope rating room. Anesthesia was induced and the patient was placed in supine position, with adequate padding of the pressure points, shoulders, back, legs and arms. He was then prepped and draped in the standard fashion. A critical pause was performed using two patient identifiers. A 16F campbell catheter was placed to gravity drainage. A pneumo-peritoneum was created with placement of a Veress needle to 20 mm Hg without complication, and a 8 Fr trocar was placed above the umbillicus. Under direct vision a 8mm robotic ports was placed lateral to each rectus slightly below the camera port. The left iliac fossa 8mm port was placed. The right tiler's assistant right iliac fossa 12mm port and right paramedian 5mm portwere placed. After the patient was placed in the trendelenberg position, the robot was then docked to the 8mm robotic ports and then each robotic arm and tower was checked in relation to the patient's legs and hands to avoid inadvertent compression. The peritoneal cavity was inspected. An inverted U-shaped incision began laterally to the left medial umbilical ligament and extended high across the midline to the right umbilical ligament. The limbs of the "U" extended to the level of the vasa on both sides. We next developed the preperitoneal space and the space of Retzius. Cautery was used to dissected the bladder away from the prostate. After the anterior bladder neck was incised and the bladder entered the the posterior bladder neck was exposed and the ureteral orifces identified. The posterior bladder neck was then incised and dissected away from the prostate. The vas and the seminal vesicles were now exposed and dissected to their insertions into the prostate and were not spared. The posterior layer of the Denonvillier's fascia was incised to enter kristen the plane between prostate and perirectal fat. Each lateral pedicle was controlled with clips and cautery for hemostasis. Partial nerve preservation was performed on the right, no nerve preservation was performed on the left. The puboprostatic ligament was incised where it inserted into the apex of the prostate and a plane between urethra and dorsal venous complex developed to expose the anterior urethral surface. The anterior wall of the urethra was transected with the cut setting a few millimeters distal to the apex of the prostate. The dorsal vein was ligated using 3-0 V lock. There was some thickened tissue along the left apical margin, that was excised and sent as separate specimen. bilateral obturator and external iliac lymph node packets were carefully dissected after careful visualization of the hypogastric artery and obturator nerve. There was careful attention paid to hemostasis with judicious use of cautery. The urethrovesical anastomosis was performed . the posterior denovillers was reapproximated using 3-0 V lock. A 6 and 6 inch 3-0 V-Lock suture was used to anastomose the urethra and bladder, starting at the 6:00 posterior position. Mucosa was secured in every stitch, to ensure a mucosa to mucosa anastomosis. The stitch was regularly cinched and the anastomosis tightened. Care was taken to not violate the ureteral orifices. The Campbell catheter was advanced, the bladder filled, and the anastomosis was tested, as described above. Anastomsis was watertight at 200 mL The periumbilical fascia was closed with 1-0-PDS suture in running fashion. All ports were closed with a subcuticular 4-0 monocryl and Dermabond. Sponge, instrument, and needle counts were correct at the end of the case x2. All specimens including prostate and lymph nodes were sent to pathology for diagnosis and will be available in a week. The patient tolerated the surgery well and without complication. He awoke without difficulty and was taken to the recovery room in stable condition
[2021-12-01] MEDS: KETOROLAC 15 MG/ML 1 ML VIAL IVP SCH (17:03)
[2021-12-01] MEDS: D5-0.45% NACL WITH KCL 20MEQ/L 1,000 ML IV SCH (17:04)
[2021-12-01] MEDS: HEPARIN SODIUM,PORCINE/PF 5,000 UNIT/0.5 ML SYRINGE SQ SCH (17:04)
[2021-12-01] MEDS ORDERED: ACETAMINOPHEN TAB 500 MG TAB PO PRN (19:55)
[2021-12-01] MEDS ORDERED: LOSARTAN 50 MG TAB PO SCH (21:00)
[2021-12-01] MEDS ORDERED: MELATONIN 5 MG TABLET PO SCH (21:00)
[2021-12-01] MEDS ORDERED: atenoloL 25 MG TAB PO SCH (21:00)
[2021-12-01] MEDS ORDERED: LORATADINE 10 MG TAB PO SCH (21:00)
[2021-12-01] MEDS ORDERED: DOCUSATE 100 MG CAP PO SCH (21:00)
[2021-12-02] MEDS: KETOROLAC 15 MG/ML 1 ML VIAL IVP SCH ×2 (00:33→05:58)
[2021-12-02] MEDS: HEPARIN SODIUM,PORCINE/PF 5,000 UNIT/0.5 ML SYRINGE SQ SCH ×2 (00:34→08:33)
[2021-12-02] MEDS: D5-0.45% NACL WITH KCL 20MEQ/L 1,000 ML IV SCH ×2 (00:35→08:34)
[2021-12-02] MEDS: LACTATED RINGERS 1,000 ML IV SCH (06:16)
--- NOTE | 2021-12-02 08:09 | P.DS ---
Providers Attending physician: Mark Marte MD Primary care physician: [facility] Course: The patient was admitted yesterday for robotic-assisted laparoscopic prostatectomy for localized prostate cancer. This went uneventfully. Stop rebleeding he did well without nausea vomiting or significant pain. The urine is clear. The abdomen is soft. He is hungry. He is ambulated. He is ready for discharge home. He'll be discharged home later today. He'll follow-up with the office. He believes the appointment is December 13. Postoperative instructions been given. Pathology report is pending. Patient Condition at Discharge: Good Plan - Discharge Summary Discharge Rx Participant: No New Discharge Prescriptions: No Action Ibuprofen [Motrin] 800 mg PO BID PRN PRN Reason: Pain Cetirizine HCl [Zyrtec] 10 mg PO HS Cholecalciferol [Vitamin D3 (25 Mcg = 1000 Iu)] 5,000 unit PO MOWEFRSA Losartan [Cozaar] 100 mg PO HS atenoloL 25 mg PO HS hydroCHLOROthiazide 50 mg PO DAILY Docusate [Colace] 300 mg PO HS Acetaminophen [Tylenol Extra Strength] 1,000 mg PO BID PRN PRN Reason: Pain Discharge Medication List Cetirizine HCl [Zyrtec] 10 mg PO HS 08/30/16 [History] Cholecalciferol [Vitamin D3 (25 Mcg = 1000 Iu)] 5,000 unit PO MOWEFRSA 08/30/16 [History] Ibuprofen [Motrin] 800 mg PO BID PRN 08/30/16 [History] Losartan [Cozaar] 100 mg PO HS 08/30/16 [History] atenoloL 25 mg PO HS 08/30/16 [History] hydroCHLOROthiazide 50 mg PO DAILY 08/30/16 [History] Acetaminophen [Tylenol Extra Strength] 1,000 mg PO BID PRN 11/29/21 [History] Docusate [Colace] 300 mg PO HS 11/29/21 [History] Follow up Appointment(s)/Referral(s): Mark Marte MD [STAFF PHYSICIAN] - 12/13/21 (The patient did go home with indwelling catheter. He should follow-up with the appointment previously given to see ) Discharge Disposition: HOME SELF-CARE
[2021-12-02 08:15] VITALS: BP 124/70; PULSE 65; RESP 17; TEMP 98.5
== END 2021-12-02 11:18 | disposition home or self-care (01) ==
LOC: OR 05:41 → 4SSUR 11:53 → OR 12-02 11:18
PROVIDERS: ATTEND Urology
DX: C61 Malignant neoplasm of prostate (principal); G89.18 Other acute postprocedural pain; I10 Essential (primary) hypertension; M19.90 Unspecified osteoarthritis, unspecified site; Z91.018 Allergy to other foods; Z79.899 Other long term (current) drug therapy
CPT/HCPCS: 64999; 86900; 86901; 88305; 86850; 88307; 88309; 55866; 38571; J2250; J1100; J0690; J2405; J1885 ×2; J1170; J1644 ×2

== ENCOUNTER → 2023-01-12 | Outpatient (CLI) | payer MEDICARE | END | disposition home or self-care (01) | LOC: LABWHC1 09:01 | PROVIDERS: ATTEND Urology | DX: C61 Malignant neoplasm of prostate (principal) | CPT/HCPCS: 36415; 84153 ==

== ENCOUNTER → 2023-05-01 | Outpatient (CLI) | payer MEDICARE ==
--- NOTE | 2023-05-01 15:50 | XR ---
EXAMINATION TYPE: XR chest 2V DATE OF EXAM: 05/01/2023 2:47 PM CLINICAL INDICATION:Male, 68 years old with history of R059,[id number] COUGH,CHRONIC COUGH; [facility] COMPARISON: Chest radiographs from 11/21/2021 TECHNIQUE: XR chest 2V Frontal and lateral views of the chest. FINDINGS: Lungs/Pleura: There is no evidence of pleural effusion, focal consolidation, or pneumothorax. Pulmonary vascularity: Unremarkable. Heart/mediastinum: Cardiomediastinal silhouette is prominent in size. Musculoskeletal: No acute osseous pathology. IMPRESSION: No acute cardiopulmonary disease/process.
== END | disposition home or self-care (01) ==
LOC: RADXRYALE 14:37
PROVIDERS: ATTEND Family Medicine
DX: R05.3 Chronic cough (principal)
CPT/HCPCS: 71046

== ENCOUNTER → 2023-07-09 | Outpatient (CLI) | payer MEDICARE | END | disposition home or self-care (01) | LOC: LABWHC1 11:10 | PROVIDERS: ATTEND Urology | DX: C61 Malignant neoplasm of prostate (principal) | CPT/HCPCS: 36415; 84153 ==

== ENCOUNTER → 2024-05-26 | Outpatient (CLI) | payer MEDICARE ==
[2024-05-26 15:51] LABS: ALT 43 U/L (10-49); AST 27 U/L (14-35); LDL Cholesterol,Calculated 93.2 mg/dL (0.0-131.0); VLDL Calculation 18.28 mg/dL (5.00-40.00)
== END | disposition home or self-care (01) ==
LOC: LABWHC1 11:37
PROVIDERS: ATTEND Internal Medicine Interventional Cardiology
DX: E78.2 Mixed hyperlipidemia (principal)
CPT/HCPCS: 36415; 80061; 84450; 84460